=== PATIENT | male | born 1955 | race Caucasian/White ===

== ENCOUNTER 2016-07-11 13:31 | Emergency (ER) | payer MEDICARE ==
[~2016-07-11] VITALS: Ht 182.9 cm; Wt 136.1 kg
[2016-07-11 13:54] LABS: BASO % 0.6 % (0.2-1.2); GRAN # 3.3 10_X3_uL (1.8-5.4); GRAN % 48.8 % (34.0-67.9); HEMATOCRIT 27.9 % (40-51); HEMOGLOBIN 8.8 g/dL (13.7-17.5); LYMPH # 2.8 10_X3_uL (1.3-3.6); LYMPH % 41.2 % (21.8-53.1); MEAN CORPUSCULAR HGB CONC 31.5 g/dL (32.0-36.0); MEAN CORPUSCULAR VOLUME 79.9 fL (79-92); MEAN PLATELET VOLUME 10.9 fl (7.5-11.5); MONO # 0.6 10_X3_uL (0.3-0.8); MONO % 9.4 % (5.3-12.2); PLATELET COUNT 129 x10_3/uL (163-337); RED BLOOD COUNT 3.49 x10_6/uL (4.6-6.1); RED CELL DISTRIBUTION WIDTH 28.1 % (11.6-14.4); WHITE BLOOD COUNT 6.7 x10_3/uL (4.2-9.1)
[2016-07-11 14:06] LABS: ALBUMIN 2.9 gm/dL (3.4-5.0); ALKALINE PHOSPHATASE 211 U/L (50-136); BILIRUBIN,TOTAL 1.79 mg/dL (0.0-1.0); CALCIUM 7.9 mg/dL (8.7-10.7); CARBON DIOXIDE 14 mmol/L (21-32); CREATINE KINASE 130 U/L (35-232); CREATININE 0.9 mg/dL (0.6-1.3); ETHYL ALCOHOL 109 mg/dl; GLUCOSE,RANDOM 150 mg/dL (70-99); INR 1.5 (0.9-1.1); PARTIAL THROMBOPLASTIN TIME 36.5 SECONDS (21.3-29.3); POTASSIUM 5.7 mmol/L (3.5-5.1); PROTHROMBIN TIME (PATIENT) 15.6 SECONDS (9.9-11.1); TOTAL PROTEIN 4.9 gm/dL (6.4-8.2)
[2016-07-11 14:13] LABS: BLOOD UREA NITROGEN 41 mg/dL (7-18)
[2016-07-11 14:14] LABS: ACETAMINOPHEN < 15.0 ug/ml (10.0-30.0); SODIUM 125 mmol/L (136-145)
[2016-07-11 14:26] LABS: ALT/SGPT 1227 U/L (7.53-40.17); AST/SGOT 3685 U/L (6.66-35.34)
[2016-07-11 14:33] LABS: MEAN CORPUSCULAR HEMOGLOBIN 25.2 pg (27.0-33.0)
== END 2016-07-11 14:29 | disposition expired ==
LOC: ER 13:31
PROVIDERS: Emergency Medicine
DX: I46.9 Cardiac arrest, cause unspecified (principal); I51.9 Heart disease, unspecified; I10 Essential (primary) hypertension; E11.9 Type 2 diabetes mellitus without complications; F10.20 Alcohol dependence, uncomplicated; F17.210 Nicotine dependence, cigarettes, uncomplicated
CPT/HCPCS: 36415; 80053; 82140; 82550; 82553; 83605; 83880; 85025; 85610; 85730; 92950; 96365; 96375; 99070; 99285; 99285-25; G0480